=== PATIENT | female | born 1980 | race African-American/Black ===

== ENCOUNTER 2017-07-02 09:45 | Emergency (ER) | payer OTHER ==
[~2017-07-02] VITALS: Ht 180.3 cm; Wt 108.9 kg
[~2017-07-02 09:45] MED LIST: ACETAMINOPHEN-1 EAC1 PO; ACYCLOVIR 400400 MG PO; AMBIEN5 MG PO; APAP500 PO; COLACE 100 MG100 MG; COLACE 100 MG100 MG PO; DERMOPLAST SPRA56 ML; HYDROXYZINE HCL50 MG; IBUPROFEN 600600 M1 PO; IBUPROFEN 800800 M1; IBUPROFEN 800800 MG PO; IRON236 MG; IRON236 MG PO; IROSPAN 24/6 T1 EACH; LANOLIN56 GM; NAPROSYN500 MG PO; NOHOMEMEDICATIONS; NORCO 5-325 TA1 EACH PO; PRENATAL; PRENATAL COMPL1 EACH PO; PRENATAL PO; SENNA PO; TUCKS MEDICATE1 EAC1; ZOFRAN ODT4 MG PO; ZOFRAN4 MG PO; ZPAK PO
[2017-07-02] MEDS ORDERED: HYDROCODONE-AP1 EAC6 PO (11:13)
[2017-07-02] MEDS ORDERED: BACTRIM DS TAB1 EACH PO (11:13)
== END 2017-07-02 11:23 | disposition home or self-care (01) ==
LOC: ER 09:45
DX: L03.031 Cellulitis of right toe (principal)